=== PATIENT | female | born 1975 | race Caucasian/White ===

== ENCOUNTER → 2018-08-13 | Outpatient (CLI) | payer OTHER ==
[~2018-08-13] MED LIST: ASTA4CAP PO; CALC500T6 PO; FLAX100027 PO; IBUP800T37 PO; LACT1CAP12; LOR5/325 PO; MAGN30TA5 PO; NAPR220C12 PO; TRYP500C2 PO
--- NOTE | 2018-08-13 15:10 | RADIOLOGY IMAGING REPORT ---
FACILITY: [facility] PATIENT NAME: Lilliana Sewell : 1975 MR: [id number] V: [id number] EXAM DATE: ORDERING PHYSICIAN: MELBA VELIZ TECHNOLOGIST: Location: [facility] Patient: Lilliana Sewell : 1975 Visit/Account:[id number] Date of Sevice: 08/13/2018 C SPINE W/O CONTRAST COMPARISON: None Additional pertinent history: Cervicalgia with history of herniated nucleus pulposus Technique: Multiplanar multisequence cervical spine MRI was performed without gadolinium enhancement. FINDINGS: Vertebral body height and alignment: Straightening of normal cervical lordosis. Otherwise negative Vertebral marrow signal: Negative Vertebral bodies: Mild anteriorly directed osteophytes at C5-C6 and C6-C7. Cervical spinal cord signal, craniocervical junction and visualized posterior fossa: Negative Surrounding soft tissues: Negative Inspection of the disc spaces reveal the following: C1-C2: Negative C2-C3: Negative C3-C4: Negative C4-C5: Negative C5-C6: Posterior broad-based disc protrusion with facet hypertrophic changes. No significant canal o r neural foraminal narrowing. C6-C7: Minimal circumferential disc bulging with facet hypertrophic changes. No significant canal or neural foraminal narrowing. C7-T1: Negative Impression: 1. Spondylitic change involving the lower cervical spine. 2. No underlying canal or neural foraminal narrowing. Report Dictated By: Kevin Roe MD at 08/13/2018 3:03 PM Report E-Signed By: Kevin Roe MD at 08/13/2018 3:06 PM WSN:[id number]
== END ==
LOC: MRI 00:59
PROVIDERS: ATTEND Chiropractor
DX: M47.812 Spondylosis without myelopathy or radiculopathy, cervical region (principal); M54.2 Cervicalgia
CPT/HCPCS: 72141